=== PATIENT | female | born 1995 | race Caucasian/White ===

== ENCOUNTER → 2017-04-13 18:57 | Observation (INO) ==
[2017-04-13 17:28] LABS: Basophils % 0.2 %; Eosinophils % 0.3 %; Hematocrit 30.9 % (35.3-44.9); Hemoglobin 10.3 g/dL (11.5-15.4); Immature Granulocytes % 0.2 % (0-4); Lymphocytes # 1.9 K/mcL (0.6-4.6); Lymphocytes % 20.7 %; Mean Corpuscular HGB Conc 33.3 g/dL (31.6-35.5); Mean Corpuscular Hemoglobin 28.8 pg (28.0-33.3); Mean Corpuscular Volume 86.3 fL (83.0-100.0); Mean Platelet Volume 11.3 fL (9.4-12.4); Monocytes # 0.4 K/mcL (0.0-1.3); Monocytes % 4.8 %; Neutrophils # 6.6 K/mcL (1.6-8.9); Platelet Count 223 K/mcL (140-400); Red Blood Count 3.58 M/mcL (3.82-4.97); Red Cell Distribution Width 13.2 % (11.5-14.5); Segmented Neutrophils % 73.8 %
--- NOTE | 2017-04-13 17:35 | OB/GYN History & Physical ---
Date of Encounter: 04/13/17 Time of Encounter: 17:20 Assessment and Plan (1) 34 weeks gestation of Current visit: Yes Status: Acute (2) Elevated blood pressure affecting in third trimester, antepartum Current visit: Yes Status: Acute - NST assessment. - Urine protein/creatinine ratio - UDS - Liver enzymes. - CBC - NPO. History of Present Illness Chief complaint: Elevated blood pressure HPI: Ms. Patel is a 22 year old female at 34 2/7 weeks gestation with a PMH of platelet storage pool deficiency that presents for elevated blood pressure. Patient says that she had her blood pressure taken at the pharmacy today at 11 am and 2 pm with a BP of 151/81 and 154/84 respectively. She says that she has been experiencing DAMIAN and vision blurriness this past Monday and today. She denies any history of HTN or any other BP issues throughout her . She admits to good movement. She dneies any vaginal fluid leakage or bleeding. She denies contractions. Denies chest pain, nausea, vomiting, fever, chills, dysuria, or diarrhea. Blood Type: B- HepBSAg: non-reactive (11/16/16) HIV Ag/Ab: non-reactive T. Pallidum Ab: negative Rubella Ab: positive Varicella Ab: positive Past Med Surg Social Fam HX - Past Medical History Medical history: non-contributory - Social History Smoking Status: Never smoker Smokeless Tobacco Status: No Alcohol use: none Drug use: none - Family History Maternal Grandfather Living Status: Still Living Hx Family Cancer: Yes Obstetrical History - Pregnancies : 1 Para: 0 Term: 0 : 0 Ab's: 0 Livin Medications and Allergies Loratadine [Claritin] 10 mg PO DAILY #30 tablet 12/23/16 [Rx] 19 Tablet 1 mg PO DAILY 12/23/16 [History] RX: Magic Mouthwash [Magic Mouthwash BLM] 10 ml PO QID #240 ml 12/23/16 [Rx] 3 Allergy/AdvReac Type Severity Reaction Status Date / Time No Known Allergies Allergy Verified 12/23/16 19:33 Exam - Vital Signs Vital signs: BP: 146/87 HR: 104 FHR: 139 Bent: 19 - Constitutional Constitutional: well developed, well nourished, no acute distress - Lungs Respiratory exam: CTAB - Cardiovascular Cardiovascular exam: +S1, +S2, tachycardia (Borderline) - Abdomen Abdomen: Present: bowel sounds normal, gravid, non tender - Extremities Extremities exam: full ROM, normal capillary refill, normal inspection, radial pulses palpable and symmetrical Deep Tendon Reflex Grade: 2+ Normal Results Result Diagrams: 04/13/17 17:15 04/13/17 17:15 Abnormal lab results RBC 3.58 M/mcL (3.82-4.97) L 04/13/17 17:15 Hgb 10.3 g/dL (11.5-15.4) L 04/13/17 17:15 Hct 30.9 % (35.3-44.9) L 04/13/17 17:15 All other labs normal. - VTE Reasons for not Prescribing Prophylaxis: Treatment not Indicated - Low risk for VTE
[2017-04-13 17:38] LABS: Protein/Creatinine Ratio,Urine 0.24 mg/mg (0-0.20)
[2017-04-13 17:42] LABS: Alanine Aminotransferase 11 Units/L (0-55); Aspartate Amino Transferase 12 Units/L (5-34); BUN/Creatinine Ratio 14 (6-26); Blood Urea Nitrogen 8 mg/dL (7-20); Lactate Dehydrogenase 181 Units/L (159-327); Uric Acid 2.9 mg/dL (2.6-6.0); eGFR For African Americans > 60 (> 60); eGFR For Non-African Americans > 60 (> 60)
[2017-04-13 18:57] LABS: Amphetamine Screen,Urine Negative ng/mL (Cutoff=1000); Barbiturate Screen,Urine Negative ng/mL (Cutoff=200); Benzodiazepines Screen,Urine Negative ng/mL (Cutoff=200); Cannabinoid Screen,Urine Negative ng/mL (Cutoff = 50); Cocaine Screen,Urine Negative ng/mL (Cutoff= 300); Opiate Screen,Urine Negative ng/mL (Cutoff=300); Phencyclidine Screen,Urine Negative ng/mL (Cutoff=25)
[~2017-04-13 18:57] MED LIST: Betamethasone Acet/SodPhos 6 MG/ML MDV IM SCH
== END | disposition home or self-care (01) ==
LOC: 1NENULAB
PROVIDERS: ADMIT Obstetrics & Gynecology; ATTEND Obstetrics & Gynecology

== ENCOUNTER 2017-04-19 20:39 | Inpatient (IN) ==
[2017-04-19 20:13] LABS: Amphetamine Screen,Urine Negative ng/mL (Cutoff=1000); Barbiturate Screen,Urine Negative ng/mL (Cutoff=200); Benzodiazepines Screen,Urine Negative ng/mL (Cutoff=200); Cannabinoid Screen,Urine Negative ng/mL (Cutoff = 50); Cocaine Screen,Urine Negative ng/mL (Cutoff= 300); Opiate Screen,Urine Negative ng/mL (Cutoff=300); Phencyclidine Screen,Urine Negative ng/mL (Cutoff=25)
[2017-04-19 20:16] LABS: Protein/Creatinine Ratio,Urine 2.15 mg/mg (0-0.20)
[~2017-04-19 20:39] MED LIST changes: -Betamethasone Acet/SodPhos 6 MG/ML MDV IM SCH; +Famotidine 20 MG/2 ML VIAL IVP PRN; +Metoclopramide 10 MG/2 ML VIAL IVP PRN; +Naloxone 0.4 MG/ML INJ IVP PRN; +Ondansetron 4 MG/2 ML VIAL IVP PRN
[2017-04-19] MEDS ORDERED: Penicillin G Potassium 5,000,000 UNIT in D5% in Water (Mini-Bag+) 100 ML IVPB ONE (20:42)
[2017-04-19] MEDS ORDERED: Calcium Gluconate 1,000 MG/10 ML VIAL IVPB PRN (20:42)
--- NOTE | 2017-04-19 20:51 | OB/GYN History & Physical ---
Date of Encounter: 04/19/17 Time of Encounter: 20:42 Assessment and Plan (1) Pre-eclampsia Current visit: Yes Status: Acute Patient came to L&D with reported BP of 150/107 and headache at 35w2d. Protein/Cr elevated at 2.15 BP of 154/89 here Patient has peripheral edema Patient will be induced for preeclampsia with severe features. Magnesium bolus 4g followed by 2g per hour. Plan for shen induction. Qualifiers: Trimester: third trimester Qualified Code(s): O14.93 - Unspecified pre- eclampsia, third trimester (2) 35 weeks gestation of Current visit: Yes Status: Acute History of Present Illness Chief complaint: Elevated Blood Pressure HPI: Ms. Patel is a 22 year old female that is 35w2d presents to L&D with elevated blood pressure. She states that she was seen in the office today and had elevated blood pressure and protein in her urine. She states that she was told to come to L&D if her blood pressures did not come down. The patient stated that her blood pressure at home was 150/107. She states that she laid on her right side and her pressures seemed to improve but once she got back up her pressures went back up. She states that she has been seen for this last week in L&D for elevated blood pressure. The patient states that she has had swelling in her hands, feet and face for the past couple of weeks. Denies any loss of fluid, vaginal bleeding or discharge. States that she is still feeling movement. She reports that she has been having a headache and rates it as a 5/ 10 and states that it is across the front of her head. She denies current vision changes but has noticed intermittent vision changes over the last week. No other complaints. Past Med Surg Social Fam HX - Past Medical History Medical history: non-contributory Psychiatric history: no psych history - Past Surgical History Surgical History: no surgical history - Social History Smoking Status: Never smoker Smokeless Tobacco Status: No Alcohol use: none Drug use: none - Family History Maternal Grandfather Age: 57 Living Status: Still Living Hx Family Cardiac Disorders: Yes (HTN) Hx Family Respiratory Disorders: Yes (COPD) Hx Family Cancer: Yes (rectal) Hx Family GI Disorders: No Hx Family Genitourinary Disorders: No Hx Family Endocrine Disorder: No Hx Family Musculoskeletal Disorders: No Hx Family Neuromuscular Disorders: No Hx Family Neurologic Disorders: No Hx Family HEENT Disorders: No Hx Family Autoimmune Disorders: No Hx Family Reproductive Disorders: No Hx Family Psychosocial Disorders: No Hx Family Medical Disorders: Yes (BPH, vit D deficiency, alcoholism, PVD, DVT) - Additional Family History Additional family history: Family history of Pre-eclampsia Obstetrical History - Pregnancies : 1 Para: 0 - History/Complications History/Complications: First . Denies any complications with this . Family history of mother and sister with preeclampsia at 31 and 33 weeks. Medications and Allergies No Known Home Drugs 04/19/17 [History] 3 Allergy/AdvReac Type Severity Reaction Status Date / Time No Known Allergies Allergy Verified 12/23/16 19:33 Review of System OB All systems PM: reviewed and no additional remarkable complaints except as stated - Constitutional Constitutional ROS IM: headache(s) - Eyes Eyes: bilateral: blurred vision (intermittent for the last week) - Cardiovascular Cardiovascular: edema, leg edema, pedal edema Exam - Constitutional Constitutional: well developed, well nourished, no acute distress - HEENT HEENT: Normocephaly, Mucus Membranes Moist - Neck Neck exam: full ROM - Lungs Respiratory exam: CTAB - Cardiovascular Cardiovascular exam: RRR, +S1, +S2 - Abdomen Abdomen: Present: bowel sounds normal, gravid, non tender - Extremities Extremities exam: full ROM, pedal edema Deep Tendon Reflex Grade: 2+ Normal - Vulva Vulva: bilateral: normal - Vagina Vagina: Present: normal moisture - Cervix Dilation: 1 Effacement: 50 Station: -3 - Anus/Rectum Anus/Rectum: Present: normal perianal skin Results Abnormal lab results Protein/Creatinin Ratio 2.15 mg/mg (0-0.20) H 04/19/17 19:45 Urine Total Protein 129 mg/dL (1-14) H 04/19/17 19:45 All other labs normal. - VTE Reasons for not Prescribing Prophylaxis: Treatment not Indicated - Low risk for VTE
[2017-04-19 21:39] LABS: Basophils % 0.3 %; Eosinophils # 0.1 K/mcL (0.0-0.6); Eosinophils % 0.8 %; Hematocrit 31.9 % (35.3-44.9); Hemoglobin 10.7 g/dL (11.5-15.4); Immature Granulocytes % 0.9 % (0-4); Lymphocytes # 2.3 K/mcL (0.6-4.6); Lymphocytes % 25.8 %; Mean Corpuscular HGB Conc 33.5 g/dL (31.6-35.5); Mean Corpuscular Hemoglobin 28.4 pg (28.0-33.3); Mean Corpuscular Volume 84.6 fL (83.0-100.0); Mean Platelet Volume 11.1 fL (9.4-12.4); Monocytes # 0.8 K/mcL (0.0-1.3); Monocytes % 8.8 %; Neutrophils # 5.6 K/mcL (1.6-8.9); Platelet Count 247 K/mcL (140-400); Red Blood Count 3.77 M/mcL (3.82-4.97); Red Cell Distribution Width 13.4 % (11.5-14.5); Segmented Neutrophils % 63.4 %
[2017-04-19] MEDS: Ringers Solution, Lactated 1,000 ML IVC SCH (21:42)
[2017-04-19] MEDS ORDERED: Penicillin G Potassium 5,000,000 UNIT in D5% in Water 100 ML IVPB ONE (21:45)
[2017-04-19 21:54] LABS: Alanine Aminotransferase 16 Units/L (0-55); Aspartate Amino Transferase 13 Units/L (5-34); BUN/Creatinine Ratio 24 (6-26); Blood Urea Nitrogen 13 mg/dL (7-20); Lactate Dehydrogenase 182 Units/L (159-327); Uric Acid 2.2 mg/dL (2.6-6.0); eGFR For African Americans > 60 (> 60); eGFR For Non-African Americans > 60 (> 60)
--- NOTE | 2017-04-19 22:27 | OB Labor Progress Note ---
Date of Encounter: 04/19/17 Time of Encounter: 22:25 Labor Progress Note - Subjective Subjective: Pt reports DAMIAN 5/10 and is feeling warm since the magnesium was started. No other complaints at this time. - Cervix Cervix: /-3 - Heart Tones Heart Tones: Category I - [place]: irregular and mild - Interventions Interventions: Magnesium bolus started. PCN started for GBS ppx while awaiting GBS culture results. Shen balloon placed in cervix and inflated with 30ml sterile water. Cytotec 25mcg placed vaginally. POC per Dr. Choudhury. - Plan Plan: Cytotec and shen induction. Continue magnesium at 2 grams per hour. Continue PCN for GBS ppx unless culture returns negative.
[2017-04-19] MEDS: Magnesium Sulfate 20 gm/500mL 20 GM/500 ML IV.SOLN IVC SCH (22:30)
[2017-04-20] MEDS ORDERED: miSOPROStol 25 MCG TABLET VG SCH
--- NOTE | 2017-04-20 01:00 | OB Labor Progress Note ---
Date of Encounter: 04/20/17 Time of Encounter: 00:57 Labor Progress Note - Subjective Subjective: Pt reports DAMIAN is now 08/05. - Heart Tones Heart Tones: Caategory I - [place]: irregular UC - Plan Plan: [place] remains in place. Continue cytotec Q 4 hours. Continue magnesium at 2 grams per hour. PCN discontinued since GBS came back negative. Continue to monitor.
[2017-04-20] MEDS ORDERED: miSOPROStol 100 MCG TABLET PO STA (02:48)
[2017-04-20] MEDS ORDERED: Oxytocin 20 units/ LR 1000 mL 20 UNIT/1,000 ML BAG IVC SCH (07:15)
--- NOTE | 2017-04-20 08:45 | OB Labor Progress Note ---
Date of Encounter: 04/20/17 Time of Encounter: 08:43 Labor Progress Note - Subjective Subjective: The patient denies any headaches, blurred vision or epigastric pain. She feels occasional contractions but they are not uncomfortable - Vital Signs Vital Signs: Afebrile, vital signs stable blood pressures 120s/70s. Urine output >400cc pale and clear - Cervix Cervix: 5/80/ballotable vtx - Heart Tones Heart Tones: 120s baseline, CAT1 - [place]: q 2-4' on 2 mU PIT - Interventions Interventions: 35 wk IUP with severe preeclampsia for induction of labor on magnesium. Stable at this time. Lungs clear to auscultation bilaterally.. Cardiovascular Regular rate and rhythm. Abdomen gravid, soft, nontender. Extremities nontender, mild bilateral lower extremity edema. DTRs 1+, no clonus - Plan Plan: Induction of labor, anticipate vaginal delivery, magnesium for seizure prophylaxis
[2017-04-20] MEDS: Acetaminophen 325 MG TABLET PO PRN (14:52)
--- NOTE | 2017-04-20 16:55 | OB Labor Progress Note ---
Date of Encounter: 04/20/17 Time of Encounter: 16:45 Labor Progress Note - Subjective Subjective: The patient is comfortable but feeling contractions. She denies any headache, blurred vision or epigastric pain. She is on magnesium. She is wanting to have her water broke. Risks and benefits were reviewed of amniotomy - Vital Signs Vital Signs: afeb, VSS 124/69 - Cervix Cervix: 4-5/80/-1, vtx - Heart Tones Heart Tones: 120s, CAT 1. 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 Amniotomy performed with small amount of fluid with dark blood and IUPC placed. External heart tones heard in the 60s and 70s. scalp electrode placed and heart tones at that time were 110s approaching 120. Facemask oxygen was given repositioning was performed. Pitocin has been decreased from 14 milliunits to 8 milliunits. Contractions appear to be every 2-3 minutes at 30-50 mmHg. heart tones reassuring and facemask removed. Peanut Ball has been initiated
[2017-04-20] MEDS ORDERED: *HR* Nalbuphine 20 MG/ML AMPUL IVP PRN (18:59)
[2017-04-20] MEDS ORDERED: *HR* Nalbuphine 20 MG/ML AMPUL ONE (19:23)
[2017-04-20] MEDS ORDERED: *HR* Ropivacaine/PF 0.2% 10 ML AMPUL EP ONE (19:25)
[2017-04-20] MEDS ORDERED: EPHEDrine 50 MG/ML VIAL IVP PRN (19:25)
[2017-04-20] MEDS ORDERED: Ringers Solution, Lactated 500 ML IVC ONE (19:25)
--- NOTE | 2017-04-20 19:28 | Anesthesia Evaluation PreOp ---
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: Denies Any Significant HX Other Medical History: Denies Any Significant HX Anesthesia History: No Prior Anesthetic Complications, Past Anesthesia : Yes Alcohol Use: none Drug use: none Medications and Allergies No Known Home Drugs 04/19/17 [History] 3 Allergy/AdvReac Type Severity Reaction Status Date / Time No Known Allergies Allergy Verified 12/23/16 19:33 - Meds/Allergy Pre-op Review Medications Reviewed: Yes Allergies Reviewed: Yes Beta Blockers on Current Med List: No Anesthesia Results - Labs 04/19/17 21:20 04/19/17 21:20 Anesthesia Exam Height: 1.68m Weight: 107.3kg (BMI 38.2) NPO (# of Hours): >4 Pain Scale: 3 Pain Scale Used: Numeric (1 - 10) - HEENT Pupil (Motor): Pupils equal Mallampati: II Teeth: Normal Oral Opening: Greater than 3 - TRIP MOTOR OPERATOR LOC: Oriented TRIP MOTOR OPERATOR Motor: Normal RUE, Normal LUE, Normal RLE, Normal LLE, Normal Face TRIP MOTOR OPERATOR Sensory: Normal: RUE, LUE, RLE, LLE, Face - Cardiac Rhythm: Regular Murmur: None JVD: No Carotid Bruit: No - Pulmonary Breath Sounds: bilateral Clear Respiratory Effort: Symmetrical Anesthesia Assess/Plan ASA Score: 2 Modified [place] Scale for Level of Consciousness: Cooperative, oriented, and tranquil Anesthetic Plan: Regional Autologous Blood: Yes Monitoring Plan: Standard Monitors Recovery Plan: Other
[2017-04-20] MEDS ORDERED: Epidural Premix (fent/bupiv) 110 ML EP SCH (19:30)
[2017-04-20] MEDS ORDERED: ROPIVACAINE HCL/PF 0.5% 30 ML VIAL ONE (19:31)
[2017-04-20] MEDS ORDERED: Epidural Premix (fent/bupiv) 110 ML EP ONE (19:31)
--- NOTE | 2017-04-20 19:59 | Anesthesia Procedures ---
Date of Encounter: 04/20/17 Time of Encounter: 19:38 Procedures: Anesthesia - Epidural/Spinal Patient ID/Chart reviewed: Yes Patient examined: Yes OB Eval: Gestational age: 35.2 OB Eval: : 1 OB Eval: Hx Para: 0 OB Eval: Contractions: Non-stressed pattern Consent Obtained: Yes Supplemental Oxygen: None/Room Air Site Prep: Aseptic Technique, Sterile prep and drape, 0.5% Chlorhexidine/Alcohol Patient position: upright Local Anesthetic: Lidocaine 1% Amount of Local Anesthetic used: 2 Touhy Needle Gauge: 18 Touhy Needle Depth (cm): 8 Catheter Depth at Skin (cm): 15 Test Dose (1.5% Lido + Epi): Volume given (mls): 4 Test Dose Result: Negative Loading Dose: Other: Ropivacaine 0.5% 10mL Loading Dose Administered: Thru Catheter Infusion Med: 0.125% Bupivacaine w/ 2 mcg/ml Fentanyl Infusion Rate (mls/hr): 16 (Bolus 4mL q15min; Max 3/hr) Catheter Secured in Place: Tegaderm Interspace Used: L3-L4 Loss of Resistance (CORBIN): Yes Blood: No CSF: No Paresthesia: No Procedure: x1 attempt. Patient tolerated well. Vitals + FHT's: VSS and FHR stable throughout. See nursing documentation.
[2017-04-20] MEDS: Magnesium Sulfate 20 gm/500mL 20 GM/500 ML IV.SOLN IVC SCH (20:00)
[2017-04-20] MEDS: Ringers Solution, Lactated 1,000 ML IVC SCH (20:01)
[2017-04-20 22:38] LABS: Basophils % 0.1 %; Eosinophils % 0.2 %; Hematocrit 34.7 % (35.3-44.9); Hemoglobin 11.5 g/dL (11.5-15.4); Immature Granulocytes % 0.5 % (0-4); Immature Platelets 6.1 % (1.1-6.1); Lymphocytes # 1.6 K/mcL (0.6-4.6); Lymphocytes % 13.4 %; Mean Corpuscular HGB Conc 33.1 g/dL (31.6-35.5); Mean Corpuscular Volume 87.4 fL (83.0-100.0); Mean Platelet Volume 10.7 fL (9.4-12.4); Monocytes # 0.7 K/mcL (0.0-1.3); Monocytes % 6.4 %; Neutrophils # 9.3 K/mcL (1.6-8.9); Platelet Count 197 K/mcL (140-400); Red Blood Count 3.97 M/mcL (3.82-4.97); Red Cell Distribution Width 13.4 % (11.5-14.5); Segmented Neutrophils % 79.4 %
--- NOTE | 2017-04-20 22:44 | OB Labor Progress Note ---
Date of Encounter: 04/20/17 Time of Encounter: 22:42 Labor Progress Note - Subjective Subjective: Patient is comfortable with epidural, no PIH symptoms - Vital Signs Vital Signs: Afebrile, vital signs stable - Cervix Cervix: 5 cm per RN - Heart Tones Heart Tones: 120s baseline, CAT 1 - [place]: Contractions every 3-5 minutes 30-50 mmHg on Pitocin - Interventions Interventions: 35 week IUP with severe preeclampsia, induction of labor on magnesium for seizure prophylaxis - Plan Plan: Patient now has epidural, observe for cervical change, peanut ball, continue induction of labor
[2017-04-20 22:54] LABS: Alanine Aminotransferase 12 Units/L (0-55); Aspartate Amino Transferase 13 Units/L (5-34); BUN/Creatinine Ratio 16 (6-26); Blood Urea Nitrogen 9 mg/dL (7-20); Lactate Dehydrogenase 205 Units/L (159-327); eGFR For African Americans > 60 (> 60); eGFR For Non-African Americans > 60 (> 60)
[2017-04-20 22:55] LABS: Uric Acid 3.6 mg/dL (2.6-6.0)
--- NOTE | 2017-04-20 23:59 | OB Labor Progress Note ---
Date of Encounter: 04/20/17 Time of Encounter: 23:57 Labor Progress Note - Subjective Subjective: Patient comfortable with epidural - Vital Signs Vital Signs: Afebrile, vital signs stable - Cervix Cervix: Rim along the left which pushes away, 0 station - Heart Tones Heart Tones: Variable D cells baseline 90s to 100s with good variability - [place]: Every 3 minutes 30-50 mmHg - Interventions Interventions: 35 week IUP induction of labor for severe preeclampsia - Plan Plan: We will attempt pushing. Anesthesia notified of potential need for fetus does not tolerate pushing
--- NOTE | 2017-04-21 01:34 | OB/GYN Procedure Note ---
Delivery - Delivery Date: 04/21/17 Provider: Diane Mcgovern Intrapartum events: prolonged labor- > = 20hr Delivery induction: shen, misoprostol Delivery augmentation: rupture of membranes, pitocin Delivery monitor: external FHT, external uterine, internal FHT, internal uterine Anesthesia: epidural Estimated Blood Loss: 100 - Infant (s) A Infant Delivery Date: 04/21/17 Delivery Time: 01:13 Presentation: vertex Position: CORTEZ Route of delivery: Gender: Male Viability: Viable Pounds: 6 Ounces: 2 at 1 minute: 8 at 5 mins: 9 Shoulder Dystocia: not encountered Specimens collected: cord blood Placenta: spontaneous, uterine exploration Cord: nuchal cord, 3 umbilical vessels, nuchal reduced - Repair Episiotomy: none Laceration Description: Periurethral - Complications Delivery complications: none Delivery comments: The patient was complete and pushing with epidural anesthesia with a spontaneous vaginal delivery in the CORTEZ position of a vigorous male weighing 6 lbs. 2oz. with Apgars of 8 at 1 minute and 9 at 5 minutes. Infant was placed on the maternal abdomen and handed to the nursery care team. The cord was clamped and cut after pulsations ceased. Cord blood obtained. The placenta was delivered spontaneous and intact. Superficial periurethral laceration was hemostatic and not repaired. No other lacerations noted. Estimated blood loss 100 mL, complications none - Disposition Mom disposition: stable in LDR disposition: stable in LDR
[2017-04-21] MEDS: Acetaminophen 325 MG TABLET PO PRN ×3 (05:27→21:31)
[2017-04-21] MEDS: Magnesium Sulfate 20 gm/500mL 20 GM/500 ML IV.SOLN IVC SCH (05:30)
[2017-04-21] MEDS ORDERED: Rho Immune Globulin 1,500 UNIT SYRINGE IM PRN (07:42)
[2017-04-21] MEDS ORDERED: Calcium Gluconate 1,000 MG/10 ML VIAL IVPB PRN (07:42)
[2017-04-21] MEDS ORDERED: Oxytocin 20 units/ LR 1000 mL 20 UNIT/1,000 ML BAG IVC SCH (07:42)
[2017-04-21] MEDS ORDERED: Ibuprofen 600 MG TABLET PO SCH (07:42)
[2017-04-21] MEDS ORDERED: Measles/Mumps/Rubella Vacc 0.5 ML VIAL SQ PRN (07:42)
[2017-04-21] MEDS ORDERED: Magnesium Sulfate 20 gm/500mL 20 GM/500 ML IV.SOLN IVC SCH (07:42)
[2017-04-21] MEDS: Prenatal Vit/FA 1 EACH TABLET PO SCH (08:22)
[2017-04-21] MEDS ORDERED: Ringers Solution, Lactated 1,000 ML IVC SCH (12:45)
[2017-04-22] MEDS: Acetaminophen 325 MG TABLET PO PRN (05:57)
[2017-04-22 07:19] LABS: Basophils % 0.2 %; Eosinophils # 0.1 K/mcL (0.0-0.6); Eosinophils % 0.9 %; Hematocrit 33.7 % (35.3-44.9); Hemoglobin 10.8 g/dL (11.5-15.4); Immature Granulocytes % 0.5 % (0-4); Lymphocytes # 1.9 K/mcL (0.6-4.6); Lymphocytes % 18.5 %; Mean Corpuscular Hemoglobin 27.8 pg (28.0-33.3); Mean Corpuscular Volume 86.9 fL (83.0-100.0); Mean Platelet Volume 10.2 fL (9.4-12.4); Monocytes # 0.8 K/mcL (0.0-1.3); Monocytes % 7.4 %; Neutrophils # 7.6 K/mcL (1.6-8.9); Platelet Count 229 K/mcL (140-400); Red Blood Count 3.88 M/mcL (3.82-4.97); Red Cell Distribution Width 13.7 % (11.5-14.5); Segmented Neutrophils % 72.5 %
[2017-04-22 07:33] LABS: Alanine Aminotransferase 13 Units/L (0-55); Aspartate Amino Transferase 19 Units/L (5-34); BUN/Creatinine Ratio 15 (6-26); Blood Urea Nitrogen 9 mg/dL (7-20); Lactate Dehydrogenase 297 Units/L (159-327); Uric Acid 3.5 mg/dL (2.6-6.0); eGFR For African Americans > 60 (> 60); eGFR For Non-African Americans > 60 (> 60)
--- NOTE | 2017-04-22 09:27 | OB/GYN Progress Note ---
Date of Encounter: 04/22/17 Time of Encounter: 09:25 - Assessment and Plan (1) Vaginal delivery Current Visit: Yes Status: Acute Patient doing well and meeting milestones (2) Severe pre-eclampsia affecting first Current Visit: Yes Status: Acute Asymptomatic, blood pressure is normal, PIH labs normal. Continue observation off magnesium (3) 35 weeks gestation of Current Visit: Yes Status: Acute Status post vaginal delivery. Patient with in the room Subjective - Subjective Principal diagnosis: PPD1 Interval history: The patient is doing well. She has minimal lochia. Baby doing well but is at 35 weeks and being observed for 48 hours from delivery Patient reports: appetite normal, voiding normally, pain well controlled, ambulating normally [place]: doing well Objective - Latest Vital Signs Latest vital signs: Vital Signs Temp Pulse Pulse Resp BP Pulse Ox 04/22/17 08:53 16 04/22/17 08:28 98.3 F 81 20 137/82 98 04/22/17 05:40 97.5 F L 71 80 16 129/82 99 04/22/17 00:25 84 16 113/70 04/21/17 23:30 86 16 110/73 04/21/17 22:30 80 16 114/69 04/21/17 21:30 89 16 123/75 04/21/17 20:30 84 115/74 04/21/17 19:30 98.3 F 95 20 118/76 97 04/21/17 18:36 91 18 120/73 04/21/17 17:38 80 20 129/81 04/21/17 16:30 82 18 128/78 04/21/17 15:30 80 18 137/78 04/21/17 14:30 80 18 120/72 04/21/17 13:30 78 18 116/78 04/21/17 12:30 91 18 125/77 04/21/17 11:33 86 18 124/78 04/21/17 10:30 83 17 128/84 04/21/17 09:43 81 18 141/86 Intake and Output 04/21/17 04/22/17 04/22/17 23:59 07:59 15:59 Intake Total 1800 / 1800 500 / 500 100 / 100 Output Total 1250 / 1250 875 / 875 300 / 300 Balance 550 / 550 -375 / -375 -200 / -200 Intake: IV Fluids 500 / 500 Magnesium Sulfate Premix 20 gm/ 500 / 500 500mL 20 gm In 500 ml @ 2 GM/HR 50 mls/hr IVC .Q10H ROSLYN Rx#: [id number] Oral 1800 / 1800 100 / 100 Output: Urine 1250 / 1250 75 / 75 300 / 300 Catheter 800 / 800 Other: Meal Dinner Breakfast Percent of Meal Consumed 50% 100% Weight 101.605 kg Patient Weight 04/22/17 23:59 Weight 101.605 kg - Exam Lungs: bilateral: normal Chest: Normal S1, Normal S2 Extremities: Present: normal Abdomen: Present: normal appearance, soft. Absent: tenderness Uterus: Present: normal, firm Uterus Position: 1 Finger Below Umbilicus Comments: 1+ pretibial edema, DTRs are 2+. no clonus - Labs Labs: Laboratory Results - last 24 hr 04/22/17 04/22/17 07:08 07:08 WBC 10.5 RBC 3.88 Hgb 10.8 L Hct 33.7 L MCV 86.9 MCH 27.8 L MCHC 32.0 RDW 13.7 Plt Count 229 MPV 10.2 Immature Gran % 0.5 Seg Neutrophils % 72.5 Lymphocytes % 18.5 Monocytes % 7.4 Eosinophils % 0.9 Basophils % 0.2 Neutrophils # 7.6 Lymphocytes # 1.9 Monocytes # 0.8 Eosinophils # 0.1 Basophils # 0.0 BUN 9 Creatinine 0.59 Est GFR ( Amer) > 60 Est GFR (Non-Af Amer) > 60 BUN/Creatinine Ratio 15 Uric Acid 3.5 AST 19 ALT 13 Lactate Dehydrogenase 297 - Allied health notes Allied health notes reviewed: nursing
[2017-04-22] MEDS: Prenatal Vit/FA 1 EACH TABLET PO SCH (10:51)
[2017-04-23 09:15] VITALS: BP 123/82
--- NOTE | 2017-04-23 09:15 | Discharge Summary ---
Date of Encounter: 04/23/17 Time of Encounter: 09:20 - Discharge Diagnosis (1) Vaginal delivery Priority: Primary Status: Acute Comments: patient doing very well, pain is under control, ambulating without issues, tolerating PO, good UO, ok for discharge - Discharge Medications Home Medications: No Known Home Drugs 04/19/17 [History] Allergies/Adverse Reactions: 3 Allergy/AdvReac Type Severity Reaction Status Date / Time ibuprofen [From Motrin] AdvReac Unknown See Verified 04/21/17 08:32 Comments Data Procedures and tests throughout hospitalization: Laboratory Tests 04/19/17 04/19/17 04/19/17 19:45 19:47 20:30 WBC RBC Hgb Hct MCV MCH MCHC RDW Plt Count MPV Immature Gran % Seg Neutrophils % Lymphocytes % Monocytes % Eosinophils % Basophils % Neutrophils # Lymphocytes # Monocytes # Eosinophils # Basophils # Immature Plt Fraction BUN Creatinine Est GFR ( Amer) Est GFR (Non-Af Amer) BUN/Creatinine Ratio Uric Acid AST ALT Lactate Dehydrogenase Urine Creatinine 60 Protein/Creatinin Ratio 2.15 H Urine Total Protein 129 H Urine Opiates Screen Negative Ur Barbiturates Screen Negative Ur Phencyclidine Scrn Negative Ur Amphetamines Screen Negative U Benzodiazepines Scrn Negative Urine Cocaine Screen Negative U Marijuana (THC) Screen Negative Group B Strep (PCR) Negative Baby's Blood Type Mother's Blood Type Rhogam Indicated 04/19/17 04/19/17 04/20/17 21:20 21:20 22:30 WBC 8.8 11.6 H RBC 3.77 L 3.97 Hgb 10.7 L 11.5 Hct 31.9 L 34.7 L MCV 84.6 87.4 MCH 28.4 29.0 MCHC 33.5 33.1 RDW 13.4 13.4 Plt Count 247 197 MPV 11.1 10.7 Immature Gran % 0.9 0.5 Seg Neutrophils % 63.4 79.4 Lymphocytes % 25.8 13.4 Monocytes % 8.8 6.4 Eosinophils % 0.8 0.2 Basophils % 0.3 0.1 Neutrophils # 5.6 9.3 H Lymphocytes # 2.3 1.6 Monocytes # 0.8 0.7 Eosinophils # 0.1 0.0 Basophils # 0.0 0.0 Immature Plt Fraction 6.1 BUN 13 Creatinine 0.55 L Est GFR ( Amer) > 60 Est GFR (Non-Af Amer) > 60 BUN/Creatinine Ratio 24 Uric Acid 2.2 L AST 13 ALT 16 Lactate Dehydrogenase 182 Urine Creatinine Protein/Creatinin Ratio Urine Total Protein Urine Opiates Screen Ur Barbiturates Screen Ur Phencyclidine Scrn Ur Amphetamines Screen U Benzodiazepines Scrn Urine Cocaine Screen U Marijuana (THC) Screen Group B Strep (PCR) Baby's Blood Type Mother's Blood Type Rhogam Indicated 04/20/17 04/21/17 04/22/17 22:30 02:10 07:08 WBC 10.5 RBC 3.88 Hgb 10.8 L Hct 33.7 L MCV 86.9 MCH 27.8 L MCHC 32.0 RDW 13.7 Plt Count 229 MPV 10.2 Immature Gran % 0.5 Seg Neutrophils % 72.5 Lymphocytes % 18.5 Monocytes % 7.4 Eosinophils % 0.9 Basophils % 0.2 Neutrophils # 7.6 Lymphocytes # 1.9 Monocytes # 0.8 Eosinophils # 0.1 Basophils # 0.0 Immature Plt Fraction BUN 9 Creatinine 0.58 Est GFR ( Amer) > 60 Est GFR (Non-Af Amer) > 60 BUN/Creatinine Ratio 16 Uric Acid 3.6 D AST 13 ALT 12 Lactate Dehydrogenase 205 Urine Creatinine Protein/Creatinin Ratio Urine Total Protein Urine Opiates Screen Ur Barbiturates Screen Ur Phencyclidine Scrn Ur Amphetamines Screen U Benzodiazepines Scrn Urine Cocaine Screen U Marijuana (THC) Screen Group B Strep (PCR) Baby's Blood Type O RH NEGATIVE Mother's Blood Type B RH NEGATIVE Rhogam Indicated NO 04/22/17 07:08 WBC RBC Hgb Hct MCV MCH MCHC RDW Plt Count MPV Immature Gran % Seg Neutrophils % Lymphocytes % Monocytes % Eosinophils % Basophils % Neutrophils # Lymphocytes # Monocytes # Eosinophils # Basophils # Immature Plt Fraction BUN 9 Creatinine 0.59 Est GFR ( Amer) > 60 Est GFR (Non-Af Amer) > 60 BUN/Creatinine Ratio 15 Uric Acid 3.5 AST 19 ALT 13 Lactate Dehydrogenase 297 Urine Creatinine Protein/Creatinin Ratio Urine Total Protein Urine Opiates Screen Ur Barbiturates Screen Ur Phencyclidine Scrn Ur Amphetamines Screen U Benzodiazepines Scrn Urine Cocaine Screen U Marijuana (THC) Screen Group B Strep (PCR) Baby's Blood Type Mother's Blood Type Rhogam Indicated Date of admission: 04/19/17 20:39 Primary care physician: PCP NONE Consults: 04/21/17 07:42 Consult to Airplane First Officer [CONS] Routine Comment: Vaginal delivery, consult needed - Patient Status Disposition: Home, Self-Care Condition: Good Functional capacity at discharge: independent ambulation Overall status at discharge: patient is progressing back to baseline - Discharge Instructions Follow Up With: NONE,PCP [Primary Care Provider] - Hospital Course 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 COMMUNICATION 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 Time Attestation: Total time spent providing and/or coordinating discharge services: Exam - Constitutional Vitals: Temp Pulse Resp BP Pulse Ox 97.4 F L 91 16 125/72 97 04/23/17 04:25 04/23/17 04:25 04/23/17 04:25 04/23/17 04:25 04/23/17 04:25 General appearance IM: A&O X 3 - Respiratory Respiratory exam: Present: CTAB - Cardiovascular Cardiovascular exam IM: Present: RRR - GI/Abdominal GI/Abdominal exam IM: normal bowel sounds - External exam: normal external exam Uterine Tone: Firm - VTE Reasons for not Prescribing Prophylaxis: Treatment not Indicated - Low risk for VTE Documentation of Mechanical Device: Intermittent pneumatic compression device
[2017-04-23] MEDS: Prenatal Vit/FA 1 EACH TABLET PO SCH (10:04)
== END 2017-04-23 11:00 | disposition home or self-care (01) | DRG 560 ==
LOC: 1NENULAB → 1NENUOBS 04-21 05:42
PROVIDERS: ADMIT Obstetrics & Gynecology; ATTEND Obstetrics & Gynecology

== ENCOUNTER 2019-11-29 18:46 | Observation (INO) ==
[2019-11-29 20:04] LABS: Bacteria,Urine Few per hpf (None-Few); Bilirubin,Urine Negative (Negative); Blood,Urine Moderate (Negative); Calcium Oxalate Crystals,Urine Present; Clarity,Urine Turbid (Clear); Color,Urine Yellow (Yellow); Glucose,Urine (UA) 100 mg/dL (Normal); Ketones,Urine Trace mg/dL (Negative); Leukocyte Esterase,Urine Large (Negative); Mucus,Urine Few per lpf (None-Few); Nitrite,Urine Negative (Negative); Protein,Urine 50 mg/dL (Neg-Trace); RBC,Urine TNTC per hpf (0-3); Specific Gravity,Urine > 1.030 (1.010-1.025); Squamous Epithelial Cell,Urine Moderate per hpf (None-Few); WBC,Urine TNTC per hpf (0-3)
== END 2019-11-29 20:50 | disposition home or self-care (01) ==
LOC: 1NENULAB
PROVIDERS: ADMIT Student in an Organized Health Care Education/Training Program; ATTEND Student in an Organized Health Care Education/Training Program

== ENCOUNTER → 2019-12-08 23:12 | Observation (INO) | END | disposition home or self-care (01) | LOC: 1NENULAB | PROVIDERS: ADMIT Student in an Organized Health Care Education/Training Program; ATTEND Student in an Organized Health Care Education/Training Program ==

== ENCOUNTER 2019-12-10 15:45 | Observation (INO) ==
[2019-12-10 16:54] LABS: Basophils % 0.1 %; Eosinophils # 0.1 K/mcL (0.0-0.6); Eosinophils % 0.6 %; Hemoglobin 11.1 g/dL (11.5-15.4); Immature Granulocytes % 0.5 % (0-4); Lymphocytes # 1.9 K/mcL (0.6-4.6); Lymphocytes % 20.3 %; Mean Corpuscular HGB Conc 32.6 g/dL (31.6-35.5); Mean Corpuscular Hemoglobin 27.5 pg (28.0-33.3); Mean Corpuscular Volume 84.2 fL (83.0-100.0); Mean Platelet Volume 11.1 fL (9.4-12.4); Monocytes # 0.5 K/mcL (0.0-1.3); Monocytes % 5.3 %; Neutrophils # 6.8 K/mcL (1.6-8.9); Platelet Count 249 K/mcL (140-400); Red Blood Count 4.04 M/mcL (3.82-4.97); Red Cell Distribution Width 14.5 % (11.5-14.5); Segmented Neutrophils % 73.2 %; White Blood Count 9.3 K/mcL (4.3-11.1)
[2019-12-10 17:36] LABS: Protein/Creatinine Ratio,Urine 0.43 mg/mg (0.00-0.20)
[2019-12-10 18:10] LABS: Alanine Aminotransferase 9 Units/L (7-52); Aspartate Amino Transferase 13 Units/L (13-39); BUN/Creatinine Ratio 17 (6-26); Blood Urea Nitrogen 8 mg/dL (6-20); Lactate Dehydrogenase 177 Units/L (140-271); Uric Acid 2.6 mg/dL (2.3-7.6); eGFR For African Americans > 60 (> 60); eGFR For Non-African Americans > 60 (> 60)
== END 2019-12-10 18:31 | disposition home health service (06) ==
LOC: 1NENULAB
PROVIDERS: ADMIT Obstetrics & Gynecology; ATTEND Obstetrics & Gynecology

== ENCOUNTER 2019-12-12 08:00 | Inpatient (IN) ==
[2019-12-12] MEDS ORDERED: Metoclopramide 10 MG/2 ML VIAL IVP PRN (08:32)
[2019-12-12] MEDS ORDERED: Lidocaine 1% 20 ML MDV INFILT PRN (08:32)
[2019-12-12] MEDS ORDERED: Ondansetron 4 MG/2 ML VIAL IVP PRN (08:32)
[2019-12-12] MEDS ORDERED: Penicillin G Potassium 5,000,000 UNIT in 0.9 % Sodium Chloride Mini Bag 100 ML IVPB ONE (08:32)
[2019-12-12] MEDS ORDERED: *HR* FentaNYL (PF) 100 MCG/2 ML VIAL IVP PRN (08:32)
[2019-12-12] MEDS ORDERED: Famotidine 20 MG/2 ML VIAL IVP PRN (08:32)
[2019-12-12] MEDS ORDERED: EPHEDrine 50 MG/ML VIAL IVP PRN (08:45)
[2019-12-12 10:42] LABS: Basophils % 0.1 %; Eosinophils # 0.1 K/mcL (0.0-0.6); Eosinophils % 0.9 %; Hematocrit 34.6 % (35.3-44.9); Hemoglobin 10.8 g/dL (11.5-15.4); Immature Granulocytes % 0.8 % (0-4); Lymphocytes # 1.9 K/mcL (0.6-4.6); Lymphocytes % 25.2 %; Mean Corpuscular HGB Conc 31.2 g/dL (31.6-35.5); Mean Corpuscular Volume 86.5 fL (83.0-100.0); Mean Platelet Volume 10.7 fL (9.4-12.4); Monocytes # 0.5 K/mcL (0.0-1.3); Monocytes % 7.1 %; Platelet Count 215 K/mcL (140-400); Red Cell Distribution Width 14.3 % (11.5-14.5); Segmented Neutrophils % 65.9 %; White Blood Count 7.6 K/mcL (4.3-11.1)
[2019-12-12 10:51] LABS: Amphetamine Screen,Urine Negative ng/mL (Cutoff=1000); Barbiturate Screen,Urine Negative ng/mL (Cutoff=200); Benzodiazepines Screen,Urine Negative ng/mL (Cutoff=200); Cannabinoid Screen,Urine Negative ng/mL (Cutoff = 50); Cocaine Screen,Urine Negative ng/mL (Cutoff= 300); Creatinine,Urine 147 mg/dL; Opiate Screen,Urine Negative ng/mL (Cutoff=300); Phencyclidine Screen,Urine Negative ng/mL (Cutoff=25)
[2019-12-12] MEDS: Ringers Solution, Lactated 1,000 ML IVC SCH ×2 (10:52→17:31)
[2019-12-12] MEDS: Oxytocin 20 units/ LR 1000 mL 20 UNIT/1,000 ML BAG IVC SCH (10:53)
[2019-12-12 11:02] LABS: Alanine Aminotransferase 9 Units/L (7-52); Aspartate Amino Transferase 11 Units/L (13-39); BUN/Creatinine Ratio 20 (6-26); Blood Urea Nitrogen 8 mg/dL (6-20); Lactate Dehydrogenase 128 Units/L (140-271); Uric Acid 2.6 mg/dL (2.3-7.6); eGFR For African Americans > 60 (> 60); eGFR For Non-African Americans > 60 (> 60)
[2019-12-12] MEDS: Penicillin G Potassium 2,500,000 UNIT/105 ML MLS IVPB SCH ×3 (14:47→22:51)
[2019-12-12] MEDS: Epidural Premix (fent/bupiv) 110 ML EP SCH ×2 (15:34→21:11)
[2019-12-12] MEDS ORDERED: *HR* FentaNYL (PF) 100 MCG/2 ML VIAL ONE (21:59)
[2019-12-12] MEDS ORDERED: Ropivacaine/PF 0.2% 20 ML VIAL ONE (22:00)
[2019-12-12] MEDS ORDERED: Lidocaine/EPI 1:200k 2% PF 20 ML VIAL ONE (22:00)
[2019-12-13] MEDS: Epidural Premix (fent/bupiv) 110 ML EP SCH (02:57)
[2019-12-13] MEDS ORDERED: *HR* FentaNYL (PF) 100 MCG/2 ML VIAL ONE (02:59)
[2019-12-13] MEDS: Penicillin G Potassium 2,500,000 UNIT/105 ML MLS IVPB SCH (02:59)
[2019-12-13] MEDS ORDERED: 0.9 % Sodium Chloride 1,000 ML ONE (03:51)
[2019-12-13] MEDS: Oxytocin 20 units/ LR 1000 mL 20 UNIT/1,000 ML BAG IVC SCH (08:23)
[2019-12-13] MEDS ORDERED: Oxytocin 20 units/ LR 1000 mL 20 UNIT/1,000 ML BAG IVC SCH (10:50)
[2019-12-13] MEDS ORDERED: Measles/Mumps/Rubella Vacc 0.5 ML VIAL SQ PRN (10:50)
[2019-12-13] MEDS ORDERED: Lanolin 7 G OINT...G. TP PRN (10:50)
[2019-12-13] MEDS ORDERED: Acetaminophen 325 MG TABLET PO PRN (10:50)
[2019-12-13] MEDS: Ibuprofen 600 MG TABLET PO PRN ×2 (11:30→23:59)
[2019-12-13] MEDS: Prenatal Vit/FA 1 EACH TABLET PO SCH (11:30)
[2019-12-14 07:37] LABS: Basophils % 0.2 %; Eosinophils # 0.1 K/mcL (0.0-0.6); Hematocrit 28.4 % (35.3-44.9); Lymphocytes # 2.1 K/mcL (0.6-4.6); Lymphocytes % 22.7 %; Mean Corpuscular HGB Conc 31.7 g/dL (31.6-35.5); Mean Corpuscular Volume 88.5 fL (83.0-100.0); Mean Platelet Volume 10.6 fL (9.4-12.4); Monocytes # 0.5 K/mcL (0.0-1.3); Monocytes % 5.8 %; Neutrophils # 6.3 K/mcL (1.6-8.9); Nucleated Red Blood Cells 0.2 /100 WBC (0); Platelet Count 167 K/mcL (140-400); Red Blood Count 3.21 M/mcL (3.82-4.97); Red Cell Distribution Width 14.5 % (11.5-14.5); Segmented Neutrophils % 69.3 %; White Blood Count 9.1 K/mcL (4.3-11.1)
[2019-12-14 08:11] VITALS: BP 120/80
[2019-12-14] MEDS: Prenatal Vit/FA 1 EACH TABLET PO SCH (08:37)
== END 2019-12-14 13:50 | disposition home or self-care (01) | DRG 560 ==
LOC: 1NENULAB 08:02 → 1NENUOBS 12-13 10:17
PROVIDERS: ADMIT Obstetrics & Gynecology; ATTEND Obstetrics & Gynecology